=== PATIENT | female | born 1945 | race Caucasian/White ===

== ENCOUNTER 2021-11-18 17:49 | Emergency (ER) | payer MEDICARE, MEDICAID, SELFPAY ==
[2021-11-18 18:23] VITALS: BP 105/73; PULSE 99; RESP 18; TEMP 36.8; O2SAT 90
[2021-11-18] MEDS: ondansetron 2 mg/ML SDV 2 mL 4 MG IVP (21:49)
[2021-11-18 22:00] LABS: Basophils # 0.1 10^3/uL (0.0-0.1); Basophils % 0.6 %; Eosinophils # 0.2 10^3/uL (0.0-0.8); Eosinophils % 1.3 %; Hematocrit 50.1 % (37.0-47.0); Hemoglobin 14.8 g/dL (11.5-15.3); Lymphocytes # 1.7 10^3/uL (0.8-4.8); Lymphocytes % 9.8 %; Mean Corpuscular HGB Conc 29.5 g/dL (30.0-36.0); Mean Corpuscular Hemoglobin 28.7 pg (28.0-34.0); Mean Corpuscular Volume 97.3 fl (81-99); Mean Platelet Volume 9.3 fL (7.4-10.4); Monocytes # 0.6 10^3/uL (0.2-0.9); Monocytes % 3.5 %; Neutrophils # 14.55 10^3/uL (1.8-7.7); Neutrophils % 83.2 %; Nucleated Red Blood Cells % 0.2 %; Platelet Count 205 10^3/cmm (130-400); Red Blood Count 5.15 10^6/uL (4.1-5.3); White Blood Count 17.5 10^3/uL (4.0-10.0)
[2021-11-18 22:28] LABS: Alanine Aminotransferase 46 U/L (0-33); Albumin Level 3.8 g/dL (3.5-5.2); Alkaline Phosphatase 200 IU/L (35-105); Blood Urea Nitrogen 14 mg/dL (8-23); Carbon Dioxide 28 mmol/L (22-29); Chloride 97 mmol/L (98-107); Globulin 2.8 g/dL (1.3-4.6); Glucose 111 mg/dL (65-115); Lipase 17 U/L (13-60); Osmolality Calculated 285 mOsm/kg (285-295); Sodium 137 mmol/L (136-145); Total Bilirubin 0.9 mg/dL (0.15-1.2); Total Protein 6.6 g/dL (6.6-8.7)
[2021-11-18 22:33] LABS: Anion Gap 17.5 (5-19); Aspartate Amino Transferase 194 U/L (0-32); Potassium 5.5 mmol/L (3.5-5.1)
--- NOTE | 2021-11-19 00:30 | CTR_ITS ---
PROCEDURE INFORMATION: Exam: CT Abdomen And Pelvis Without Contrast Exam date and time: 11/19/2021 12:30 AM Age: 76 years old Clinical indication: Nausea and vomiting; Abdominal pain; Generalized; Prior surgery; Surgery type: Gb. Nephrectomy. Hysterectomy. ; Patient HX: C/O abd pain with n/v. Elevated wbc. ; Additional info: Abd pain, persistent n/v, elevated wbc TECHNIQUE: Imaging protocol: Computed tomography of the abdomen and pelvis without contrast. Radiation optimization: All CT scans at this facility use at least one of these dose optimization techniques: automated exposure control; mA and/or kV adjustment per patient size (includes targeted exams where dose is matched to clinical indication); or iterative reconstruction. COMPARISON: No relevant prior studies available. RADIATION DOSE METRICS: Total DLP (mGy-cm): 1627.46 FINDINGS: Lungs: Multiple diffuse bilateral pulmonary nodules measuring up to 17 mm throughout the visualized lung gutierrez concerning for metastatic disease, dedicated chest CT advised for further evaluation. Caudate lobe of the liver demonstrates a 4.5 cm low-density mass concerning for metastatic disease given lung findings, MRI or CT with intravenous contrast advised for further evaluation. Liver: Normal. No mass. Gallbladder and bile ducts: Cholecystectomy. Pancreas: Normal. No ductal dilation. Spleen: Normal. No splenomegaly. Adrenal glands: Left adrenal 17 mm low-density nodule may reflect a benign adenoma, however, metastatic disease is not excluded. Right adrenal 4.6 cm low-density mass is also seen, concerning for metastatic disease. Kidneys and ureters: Right kidney is absent. Stomach and bowel: Diverticulosis without diverticulitis. Appendix: No evidence of appendicitis. Intraperitoneal space: Unremarkable. No free air. No significant fluid collection. Vasculature: Unremarkable. No abdominal aortic aneurysm. Lymph nodes: Unremarkable. No enlarged lymph nodes. Urinary bladder: Unremarkable as visualized. Reproductive: Unremarkable as visualized. Bones/joints: L1 vertebral body superior endplate compression deformity is likely chronic. Soft tissues: Moderate umbilical hernia containing omentum without bowel. CT/CT abdomen pelvis wo con [id number] IMPRESSION: 1. Negative for acute appearing inflammatory process in the abdomen or pelvis. 2. Multiple diffuse bilateral pulmonary nodules measuring up to 17 mm throughout the visualized lung gutierrez concerning for metastatic disease, dedicated chest CT advised for further evaluation. 3. Cholecystectomy. 4. Left adrenal 17 mm low-density nodule may reflect a benign adenoma, however, metastatic disease is not excluded. Right adrenal 4.6 cm low-density mass is also seen, concerning for metastatic disease. 5. Diverticulosis without diverticulitis. 6. Moderate umbilical hernia containing omentum without bowel. 7. L1 vertebral body superior endplate compression deformity is likely chronic. 8. Right kidney is absent. COMMENTS: Consistent with the [employer]'s Incidental Findings Committee white paper (J Am Delta Radiol 2017): For any incidental adrenal lesion greater than 1 cm but less than 4 cm classified in this report as benign, likely benign, or containing fat (including classification as an adenoma or myelolipoma), no follow-up imaging is recommended per consensus recommendations based on imaging criteria. Further lab evaluation could be pursued if warranted based on clinical findings.
--- NOTE | 2021-11-19 00:32 | W.ED.NAVMDI ---
HPI - Nausea/Vomiting/Diarrhea General: Chief complaint: Nausea/Vomiting/Diarrhea Stated complaint: Throwing up and hx masses on her liver Time Seen by Provider: 11/19/21 00:22 History of Present Illness: 76-year-old female comes in today with complaints of nausea and vomiting since June. Patient reports worsening symptoms over the last 2 to 3 weeks. Patient did find out by ultrasound that she has masses to her liver. Patient is awaiting set up with her primary care provider in [place], [place]. Patient reports a history of hiatal hernia, gallbladder removal, kidney removal due to tumor, diabetes mellitus. Patient appears mildly unwell but not toxic. Associated nausea: Yes Associated symtoms: Reports nausea Review of Systems GI: Reports: nausea and vomiting Physical Exam Const: COMMON NORMALS: alert HENMT: COMMON NORMALS: normocephalic HEAD & SCALP: normocephalic Neck/C-Spine: GENERAL: No lymphadenopathy Resp: COMMON NORMALS: normal respiratory effort and clear to auscultation bilaterally AUSCULTATION: clear to auscultation bilaterally Cardio: COMMON NORMALS: regular rate and regular rhythm RATE: regular rate RHYTHM: regular rhythm GI: COMMON NORMALS: Soft to palpation and non-tender AUSCULTATION: Yes normoactive bowel sounds PALPATION: Yes Soft to palpation Extremity: COMMON NORMALS: normal to inspection and no pedal edema Neuro: SENSORIUM/ORIENTATION: Yes alert Psych: COMMON NORMALS: cooperative Skin: COMMON NORMALS: no rashes or lesions noted GENERAL SKIN EXAM: no rashes or lesions noted Course Vital Signs: Vital signs: Vital Signs Temperature 97.7 F 11/19/21 01:40 Pulse Rate 104 H 11/19/21 01:40 Respiratory Rate 20 H 11/19/21 01:40 Blood Pressure 95/70 11/19/21 01:40 Pulse Oximetry 94 11/19/21 01:40 MDM - Nausea/Vomiting/Diarrhea Medical Decision Making 76-year-old female comes in today with persistent vomiting since June. Patient has had ultrasound by her primary care that showed some abnormality to her liver which patient thinks may be causing her persistent nausea and vomiting. Patient reports over the last 3 weeks it has gotten worse. On exam patient appears mildly unwell but not toxic. Patient is morbidly obese, with a history of renal carcinoma with kidney removal. On exam lungs are clear to auscultation. Abdomen is soft and nontender to palpation. Differential diagnosis includes gastritis, bowel obstruction, gastroparesis due to diabetes mellitus, complications of hiatal hernia. Laboratory values noted a white count of 17,000, potassium was 5.5, creatinine was 1.7. Patient was given 1 L of IV fluids for concerns of dehydration. Urinalysis was unremarkable. CT of the abdomen pelvis noted no signs of infection or inflammatory disease although there was some nodule in the lung suggesting metastatic disease and recommending a CT of the chest. CT of the chest did note multiple nodules throughout lung suggesting metastatic disease. I reviewed this with Dr. Escobar recommend that we go ahead and set patient up with pulmonology for biopsy. Talk with patient regarding this and she agreed with plan. Patient was still concerned about her nausea and vomiting I recommended that we go ahead and refer her for a EGD further evaluation of her stomach lining and esophagus to rule out any gastritis or esophagitis may be contributing to her nausea and vomiting. I will start patient on some promethazine 12-1/2 mg three times a day to help with her symptoms. Patient does report that she was started on a PPI by her primary care and Zofran for her nausea. Patient reported understanding of care plan and need for follow-up or return. Case management was requested to assist with referral to pulmonology for biopsy and surgery for EGD. Lab Data : 11/18/21 21:50 11/18/21 21:50 Radiology Impressions Abdomen/Pelvis CT 11/19/21 00:30 IMPRESSION: 1. Negative for acute appearing inflammatory process in the abdomen or pelvis. 2. Multiple diffuse bilateral pulmonary nodules measuring up to 17 mm throughout the visualized lung gutierrez concerning for metastatic disease, dedicated chest CT advised for further evaluation. 3. Cholecystectomy. 4. Left adrenal 17 mm low-density nodule may reflect a benign adenoma, however, metastatic disease is not excluded. Right adrenal 4.6 cm low-density mass is also seen, concerning for metastatic disease. 5. Diverticulosis without diverticulitis. 6. Moderate umbilical hernia containing omentum without bowel. 7. L1 vertebral body superior endplate compression deformity is likely chronic. 8. Right kidney is absent. COMMENTS: Consistent with the [employer]'s Incidental Findings Committee white paper (J Am Delta Radiol 2017): For any incidental adrenal lesion greater than 1 cm but less than 4 cm classified in this report as benign, likely benign, or containing fat (including classification as an adenoma or myelolipoma), no follow-up imaging is recommended per consensus recommendations based on imaging criteria. Further lab evaluation could be pursued if warranted based on clinical findings. Chest CT 11/19/21 01:07 IMPRESSION: Numerous bilateral pulmonary nodules suspicious for metastatic disease; PET-CT scan recommended for guiding biopsy planning. Laboratory Results WBC 17.5 10^3/uL (4.0-10.0) H 11/18/21 21:50 RBC 5.15 10^6/uL (4.1-5.3) 11/18/21 21:50 Hgb 14.8 g/dL (11.5-15.3) 11/18/21 21:50 Hct 50.1 % (37.0-47.0) H 11/18/21 21:50 MCV 97.3 fl (81-99) 11/18/21 21:50 MCH 28.7 pg (28.0-34.0) 11/18/21 21:50 MCHC 29.5 g/dL (30.0-36.0) L 11/18/21 21:50 RDW 16.0 % (12.1-15.1) H 11/18/21 21:50 Plt Count 205 10^3/cmm (130-400) 11/18/21 21:50 MPV 9.3 fL (7.4-10.4) 11/18/21 21:50 Neut % (Auto) 83.2 % 11/18/21 21:50 Lymph % (Auto) 9.8 % 11/18/21 21:50 [place] % (Auto) 3.5 % 11/18/21 21:50 Eos % (Auto) 1.3 % 11/18/21 21:50 Baso % (Auto) 0.6 % 11/18/21 21:50 Neut # (Auto) 14.55 10^3/uL (1.8-7.7) H 11/18/21 21:50 Lymph # (Auto) 1.7 10^3/uL (0.8-4.8) 11/18/21 21:50 [place] # (Auto) 0.6 10^3/uL (0.2-0.9) 11/18/21 21:50 Eos # (Auto) 0.2 10^3/uL (0.0-0.8) 11/18/21 21:50 Baso # (Auto) 0.1 10^3/uL (0.0-0.1) 11/18/21 21:50 Nucleated RBC % (auto) 0.2 % 11/18/21 21:50 Nucleated RBCs # 0.0 /100WBC 11/18/21 21:50 Sodium 137 mmol/L (136-145) 11/18/21 21:50 Potassium 5.5 mmol/L (3.5-5.1) H 11/18/21 21:50 Chloride 97 mmol/L (98-107) L 11/18/21 21:50 Carbon Dioxide 28 mmol/L (22-29) 11/18/21 21:50 Anion Gap 17.5 (5-19) 11/18/21 21:50 BUN 14 mg/dL (8-23) 11/18/21 21:50 Creatinine 1.7 mg/dL (0.5-0.9) H 11/18/21 21:50 GFR Calculation Not Reportable 11/18/21 21:50 Glucose 111 mg/dL (65-115) 11/18/21 21:50 Calculated Osmolality 285 mOsm/kg (285-295) 11/18/21 21:50 Calcium 8.0 mg/dL (8.5-10.5) L 11/18/21 21:50 Total Bilirubin 0.9 mg/dL (0.15-1.2) 11/18/21 21:50 AST 194 U/L (0-32) H 11/18/21 21:50 ALT 46 U/L (0-33) H 11/18/21 21:50 Alkaline Phosphatase 200 IU/L (35-105) H 11/18/21 21:50 Total Protein 6.6 g/dL (6.6-8.7) 11/18/21 21:50 Albumin 3.8 g/dL (3.5-5.2) 11/18/21 21:50 Globulin 2.8 g/dL (1.3-4.6) 11/18/21 21:50 Lipase 17 U/L (13-60) 11/18/21 21:50 Urine Color Alisia (Yellow) 11/19/21 01:12 Urine Appearance Clear (CLEAR) 11/19/21 01:12 Urine pH 5 (5-7) 11/19/21 01:12 Ur Specific [place] 1.030 (1.005-1.030) 11/19/21 01:12 Urine Protein Trace (Negative) 11/19/21 01:12 Urine Glucose (UA) Norm (Normal) 11/19/21 01:12 Urine Ketones Negative (Negative) 11/19/21 01:12 Urine Blood 2+ (Negative) H 11/19/21 01:12 Urine Nitrate Negative (Negative) 11/19/21 01:12 Urine Bilirubin 1+ (Negative) H 11/19/21 01:12 Urine Urobilinogen 1 mg/dL (Negative) H 11/19/21 01:12 Ur Leukocyte Esterase Negative (Negative) 11/19/21 01:12 Urine RBC 5-10 /hpf (0-2) H 11/19/21 01:12 Urine WBC 0-4 /hpf (0-5) H 11/19/21 01:12 Ur Squamous Epith Cells 0-4 /hpf (0-5) H 11/19/21 01:12 Amorphous Sediment 1+ /hpf 11/19/21 01:12 Urine Bacteria 1+ /hpf (NONE) H 11/19/21 01:12 Hyaline Casts 0-4 /lpf H 11/19/21 01:12 Urine Mucus 2+ /hpf 11/19/21 01:12 Discharge Plan Discharge Patient Disposition: Home Clinical Impression: Abnormal CT scan, lung, Pulmonary nodule, Hernia, hiatal Nausea & vomiting Qualifiers: Vomiting type: unspecified Qualified Code(s): R11.2 - Nausea with vomiting, unspecified Condition: Stable Prescriptions: New promethazine 12.5 mg tablet 12.5 mg PO TID PRN (Reason: nausea and vomiting) Qty: 14 0RF Rx Instructions: 3 doses during day; last dose no later than 4 hr before bedtime Discharge Orders: Discharge ED (Routine); Ordered 11/19/21 Ordered By: Chris Esquivel Discharge Diet: Usual diet Discharge Activity: Increase activity as tolerated Patient Instructions: Hiatal Hernia (ED) Activity Restrictions/Additional Instructions: Continue with routine medications as directed. Use promethazine as needed for nausea and vomiting. Eat small frequent meals. Avoid eating 2 to 3 hours before bedtime. Drink plenty of water. Follow-up with primary care for further instruction. Case management will contact you regarding pulmonology follow-up for biopsy of the lung. manager embalmer funeral director also contact you regarding your persistent nausea and vomiting to rule out gastritis or other gastric etiology. Coding Level of Care Code ED Tug Hand for Chg Fwd Exam Comprehensive
--- NOTE | 2021-11-19 01:07 | CTR_ITS ---
PROCEDURE INFORMATION: Exam: CT Chest Without Contrast; Diagnostic Exam date and time: 11/19/2021 1:07 AM Age: 76 years old Clinical indication: Prior surgery; Patient HX: Cough. Pulm nodules seen on abd CT. No contrast given due to nephrectomy and elevated creat. ; Additional info: Cough, abnormal CT of abd TECHNIQUE: Imaging protocol: Diagnostic computed tomography of the chest without contrast. Radiation optimization: All CT scans at this facility use at least one of these dose optimization techniques: automated exposure control; mA and/or kV adjustment per patient size (includes targeted exams where dose is matched to clinical indication); or iterative reconstruction. COMPARISON: CT abdomen pelvis wo con [id number] 11/19/2021 12:43 AM RADIATION DOSE METRICS: Total DLP (mGy-cm): 836.04 FINDINGS: Lungs: Numerous bilateral pulmonary nodules are noted bilaterally; the largest is at the lateral right base and measures 1.9 cm greatest dimension. Small area of airspace disease at right lung base favored to represent infiltrate. Pleural spaces: Unremarkable. No pneumothorax. No pleural effusion. Heart: Dense coronary arterial calcifications are noted. Aorta: Aortic calcifications are noted. No findings of aneurysm or mediastinal hemorrhage. Lymph nodes: Enlarged subcarinal lymph node estimated at 2.4 cm short axis and suspicion for enlarged lymph node at right pulmonary hilum. Bones/joints: No acute fracture. Soft tissues: Unremarkable. CT/CT chest wo con [id number] IMPRESSION: Numerous bilateral pulmonary nodules suspicious for metastatic disease; PET-CT scan recommended for guiding biopsy planning.
[2021-11-19] MEDS: sodium chloride 0.9% 1,000 ML 999 ML IV (01:19)
--- NOTE | 2021-11-19 01:20 | PC.NURSE ---
I/O catheter performed per myself with candace Meredith RN at bedside. patient in no obivous distress.
[2021-11-19 01:29] LABS: Add Urine Culture? No; Add Urine Microscopic? YES; Amorphous Sediment Urine 1+ /hpf; Bacteria Urine 1+ /hpf; Bilirubin Urine 1+ (Negative); Blood Urine 2+ (Negative); Glucose Urine UA Norm (Normal); Hyaline Casts Urine 0-4 /lpf; Ketones Urine Negative (Negative); Leukocyte Esterase Urine Negative (Negative); Mucus Urine 2+ /hpf; Nitrate Urine Negative (Negative); Protein Urine Trace (Negative); Squamous Epithelial Cell Urine 0-4 /hpf (0-5); Urine Appearance Clear (CLEAR); Urine Color Amber (Yellow); Urobilinogen Urine 1 mg/dL (Negative); WBC Urine 0-4 /hpf (0-5); pH Urine 5 (5-7)
[2021-11-19 01:40] VITALS: BP 95/70; PULSE 104; RESP 20; TEMP 36.5; O2SAT 94
--- NOTE | 2021-11-19 01:41 | PC.NURSE ---
ct at bedside taking patinet . patient in no obivous distress.
[2021-11-19] MEDS: promethazine 25 mg/mL SDV 1 mL IM (02:56)
[2021-11-19] MEDS: dexamethasone 4 mg/mL INJ IVP (02:56)
[2021-11-19] MEDS: pantoprazole 40 mg SDV IVP (03:05)
[2021-11-19 03:06] VITALS: BP 128/86; PULSE 95; RESP 20; TEMP 36.6; O2SAT 94
[2021-11-19 03:48] VITALS: BP 116/86; PULSE 94; RESP 18; TEMP 36.7; O2SAT 95
--- NOTE | 2021-11-19 07:24 | DCPLANNER ---
Addendum entered by Harriett Rider 11/25/21 07:40: Patient has a follow up appointment scheduled for Wednesday, December 01, 2021 at 11:[address] Metzger at [facility] General Surgery. Clinic will call patient with appointment information. Original Note: mortuary operations manager had message to schedule a follow up appointment for patient with general surgery. mortuary operations manager emailed patients information to Zuleyma Han and Angelica at [facility] General Surgery / ENT clinic. Patients information will be printed and reviewed. Clinic will call patient with appointment information.
--- NOTE | 2021-11-19 11:44 | DCPLANNER ---
Addendum entered by Harriett Rider 12/12/21 12:56: Patient had a follow up appointment scheduled for 12.01.21 with general surgery - patient did attend appointment. Addendum entered by Harriett Rider 12/12/21 09:21: Patient had a follow up appointment scheduled with heart care - patient did not attend appointment. Original Note: grain oilseed or pasture farm manager had message to schedule a follow up appointment with pulmonology. grain oilseed or pasture farm manager called [facility], spoke with Arina, gave clinic patients information. A follow up appointment was scheduled for Wednesday, December 01, 2021 at 2:[address] Eaton. grain oilseed or pasture farm manager called patient, gave patient the appointment information.
== END 2021-11-19 03:50 | disposition home or self-care (01) ==
PROVIDERS: Emergency Provider Nurse Practitioner Family
DX: R11.2 Nausea with vomiting, unspecified (principal); R91.8 Other nonspecific abnormal finding of lung field; R91.1 Solitary pulmonary nodule; K44.9 Diaphragmatic hernia without obstruction or gangrene
CPT/HCPCS: 51701; 71250; 74176; 80053; 81001; 83690; 85025; 96361; 96372; 96374; 96375; 99283; C9113; J1100; J2405; J2550; J7030

== ENCOUNTER 2021-11-26 00:03 | Emergency (ER) | payer MEDICARE, MEDICAID, SELFPAY ==
[2021-11-26 00:10] VITALS: BP 126/82; PULSE 100; RESP 22; TEMP 36.6; O2SAT 93; BMI 49.1
--- NOTE | 2021-11-26 00:19 | XRR_ITS ---
PROCEDURE INFORMATION: Exam: XR Chest Exam date and time: 11/26/2021 12:19 AM Age: 76 years old Clinical indication: Shortness of breath; Patient HX: C/O worsening SOB. Mildly hypoxic on monitor. History of copd. ; Additional info: Chest pain TECHNIQUE: Imaging protocol: XR of the chest. Views: 1 view. COMPARISON: CT chest con [id number] 11/19/2021 1:46 AM FINDINGS: Lungs: Stable, multiple lung nodules. No acute infiltrate. Pleural spaces: Unremarkable. No pleural effusion. No pneumothorax. Heart/Mediastinum: There is mild cardiomegaly. Stable right hilar adenopathy. Bones/joints: Unremarkable. XR/XR chest 1V portable [id number] IMPRESSION: 1. Mild cardiomegaly. 2. Stable, multiple lung nodules. 3. Stable right hilar adenopathy. 4. No acute infiltrate.
[2021-11-26 03:24] LABS: Basophils # 0.1 10^3/uL (0.0-0.1); Basophils % 0.6 %; Eosinophils # 0.2 10^3/uL (0.0-0.8); Eosinophils % 1.5 %; Hemoglobin 13.3 g/dL (11.5-15.3); Lymphocytes # 1.3 10^3/uL (0.8-4.8); Lymphocytes % 10.4 %; Mean Corpuscular HGB Conc 29.6 g/dL (30.0-36.0); Mean Corpuscular Hemoglobin 28.6 pg (28.0-34.0); Mean Corpuscular Volume 96.8 fl (81-99); Mean Platelet Volume 9.1 fL (7.4-10.4); Monocytes # 0.5 10^3/uL (0.2-0.9); Monocytes % 4.3 %; Neutrophils # 10.12 10^3/uL (1.8-7.7); Neutrophils % 82.1 %; Nucleated Red Blood Cells % 0 %; Platelet Count 118 10^3/cmm (130-400); Red Blood Count 4.65 10^6/uL (4.1-5.3); Red Cell Distribution Width 16.2 % (12.1-15.1); White Blood Count 12.3 10^3/uL (4.0-10.0)
[2021-11-26 03:58] LABS: Albumin Level 3.5 g/dL (3.5-5.2); Chloride 103 mmol/L (98-107); Glucose 107 mg/dL (65-115); Sodium 136 mmol/L (136-145)
[2021-11-26 04:11] LABS: Alanine Aminotransferase 66 U/L (0-33); Alkaline Phosphatase 263 IU/L (35-105); Anion Gap 18.6 (5-19); Aspartate Amino Transferase 274 U/L (0-32); Blood Urea Nitrogen 20 mg/dL (8-23); Carbon Dioxide 21 mmol/L (22-29); Globulin 1.9 g/dL (1.3-4.6); Lipase 26 U/L (13-60); Osmolality Calculated 285 mOsm/kg (285-295); Potassium 4.6 mmol/L (3.5-5.1); Total Bilirubin 1.1 mg/dL (0.15-1.2); Total Protein 5.3 g/dL (6.6-8.7)
--- NOTE | 2021-11-26 04:15 | ED_ITS ---
HPI - Abdominal Pain General: Chief Complaint: Abdominal Pain Stated Complaint: ABD Pain O2 Level 84, SOB Time Seen by Provider: 11/26/21 04:06 Source: patient Mode of arrival: ambulatory Limitations: no limitations History of Present Illness: 76-year-old female who states she has been having nausea and vomiting since June. She states that she ran out of her Phenergan today she has had worse vomiting. She states she is scheduled for scope later this month she believes next week. She states she also had some slight shortness of breath she does wear 2 L at home here she is 94% on the 2 L denies any cough denies any fever denies any diarrhea denies any abdominal pain currently. Associated Symptoms: Reports nausea and vomiting; Denies chills, dysuria and fever(s) Review of Systems Const: Denies: fever(s), chills, body aches or change in appetite Eyes: Denies: blurry vision or eye discomfort ENMT: Denies: throat pain or dental pain Card: Denies: chest pain Resp: Reports: dyspnea GI: Reports: nausea and vomiting : Denies: dysuria Musc: Denies: neck pain or back pain Skin/Breast: Denies: rash Neuro: Denies: headache(s) Psych: Denies: depression Bk/Lymph: Denies: easy bruising All/Imm: Denies: urticaria PFS ED PFSH: Medical History (Updated 11/26/21 @ 05:07 by Lio Escobar MD) Nausea & vomiting Social History (Updated 11/26/21 @ 04:16 by Lio Escobar MD) Substance/Drug Use: never Physical Exam Const: COMMON NORMALS: no acute distress, patient oriented x3 and healthy appearing HENMT: COMMON NORMALS: normocephalic and atraumatic HEAD & SCALP: normocephalic and atraumatic Eye: COMMON NORMALS: Equal, round and reactive pupils present and EOMs intact bilaterally PUPIL: Yes Equal, round and reactive pupils present Neck/C-Spine: COMMON NORMALS: full ROM and supple Chest: COMMONS NORMALS: normal inspection of the chest and normal palpation of entire chest wall Resp: COMMON NORMALS: normal respiratory effort, No retractions, No use of accessory muscles and clear to auscultation bilaterally AUSCULTATION: clear to auscultation bilaterally Cardio: COMMON NORMALS: regular rate, regular rhythm and No murmurs present (Cardio) RATE: regular rate RHYTHM: regular rhythm GI: COMMON NORMALS: Normal to inspection, nondistended, normoactive bowel sounds present, Soft to palpation, non-tender and no masses PALPATION: Yes Soft to palpation Extremity: COMMON NORMALS: normal to inspection and full ROM Neuro: COMMON NORMALS: patient oriented x3, moves all extremities and no focal motor deficits Psych: COMMON NORMALS: mental status grossly normal, Normal thought process present and cooperative THOUGHT PROCESS: Normal thought process present Skin: COMMON NORMALS: no rashes or lesions noted and no wounds GENERAL SKIN EXAM: no rashes or lesions noted Course Vital Signs: Vital signs: Vital Signs Temperature 97.8 F 11/26/21 00:10 Pulse Rate 102 H 11/26/21 05:06 Respiratory Rate 18 11/26/21 05:05 Blood Pressure 126/82 11/26/21 00:10 Pulse Oximetry 94 11/26/21 05:05 MDM - Abdominal Pain Medical Decision Making Patient presents here with vomiting that is been chronic in nature she is well- appearing here blood work here is normal she feels better after Phenergan will prescribe her Phenergan for home she stable for discharge she is to follow-up with her scope as scheduled next week she is return if worsening. Lab Data : 11/26/21 03:19 11/26/21 03:19 Labs/Radiology: Radiology Impressions Chest X-Ray 11/26/21 00:19 IMPRESSION: 1. Mild cardiomegaly. 2. Stable, multiple lung nodules. 3. Stable right hilar adenopathy. 4. No acute infiltrate. Laboratory Results WBC 12.3 10^3/uL (4.0-10.0) H 11/26/21 03:19 RBC 4.65 10^6/uL (4.1-5.3) 11/26/21 03:19 Hgb 13.3 g/dL (11.5-15.3) 11/26/21 03:19 Hct 45.0 % (37.0-47.0) 11/26/21 03:19 MCV 96.8 fl (81-99) 11/26/21 03:19 MCH 28.6 pg (28.0-34.0) 11/26/21 03:19 MCHC 29.6 g/dL (30.0-36.0) L 11/26/21 03:19 RDW 16.2 % (12.1-15.1) H 11/26/21 03:19 Plt Count 118 10^3/cmm (130-400) L 11/26/21 03:19 MPV 9.1 fL (7.4-10.4) 11/26/21 03:19 Neut % (Auto) 82.1 % 11/26/21 03:19 Lymph % (Auto) 10.4 % 11/26/21 03:19 [place]le % (Auto) 4.3 % 11/26/21 03:19 Eos % (Auto) 1.5 % 11/26/21 03:19 Baso % (Auto) 0.6 % 11/26/21 03:19 Neut # (Auto) 10.12 10^3/uL (1.8-7.7) H 11/26/21 03:19 Lymph # (Auto) 1.3 10^3/uL (0.8-4.8) 11/26/21 03:19 [place] # (Auto) 0.5 10^3/uL (0.2-0.9) 11/26/21 03:19 Eos # (Auto) 0.2 10^3/uL (0.0-0.8) 11/26/21 03:19 Baso # (Auto) 0.1 10^3/uL (0.0-0.1) 11/26/21 03:19 Nucleated RBC % (auto) 0 % 11/26/21 03:19 Nucleated RBCs # 0.0 /100WBC 11/26/21 03:19 Sodium 136 mmol/L (136-145) 11/26/21 03:19 Potassium 4.6 mmol/L (3.5-5.1) 11/26/21 03:19 Chloride 103 mmol/L (98-107) 11/26/21 03:19 Carbon Dioxide 21 mmol/L (22-29) L 11/26/21 03:19 Anion Gap 18.6 (5-19) 11/26/21 03:19 BUN 20 mg/dL (8-23) 11/26/21 03:19 Creatinine 2.1 mg/dL (0.5-0.9) H 11/26/21 03:19 GFR Calculation Not Reportable 11/26/21 03:19 Glucose 107 mg/dL (65-115) 11/26/21 03:19 Calculated Osmolality 285 mOsm/kg (285-295) 11/26/21 03:19 Calcium 8.0 mg/dL (8.5-10.5) L 11/26/21 03:19 Total Bilirubin 1.1 mg/dL (0.15-1.2) 11/26/21 03:19 AST 274 U/L (0-32) H 11/26/21 03:19 ALT 66 U/L (0-33) H 11/26/21 03:19 Alkaline Phosphatase 263 IU/L (35-105) H 11/26/21 03:19 Total Protein 5.3 g/dL (6.6-8.7) L 11/26/21 03:19 Albumin 3.5 g/dL (3.5-5.2) 11/26/21 03:19 Globulin 1.9 g/dL (1.3-4.6) 11/26/21 03:19 Lipase 26 U/L (13-60) 11/26/21 03:19 Discharge Plan Discharge Patient Disposition: Home Clinical Impression: Nausea & vomiting Prescriptions: New promethazine 25 mg tablet 25 mg PO Q6H PRN (Reason: nausea and vomiting) Qty: 20 0RF No Action promethazine 12.5 mg tablet 12.5 mg PO TID PRN (Reason: nausea and vomiting) Qty: 14 0RF Rx Instructions: 3 doses during day; last dose no later than 4 hr before bedtime pantoprazole 40 mg tablet,delayed release (DR/EC) 40 mg PO BID 10 Days Qty: 20 0RF Discharge Orders: Discharge ED (Routine); Ordered 11/26/21 Ordered By: Lio Escobar Discharge Diet: Advance as tolerated Discharge Activity: Resume usual activity Patient Instructions: Acute Nausea and Vomiting (ED) Coding Level of Care Code ED Doorperson Or Luggage Porter for Annette Fwd Exam Comprehensive
[2021-11-26] MEDS: promethazine 25 mg/mL SDV 1 mL IM (04:26)
[2021-11-26] MEDS: sodium chloride 0.9% 1,000 ML 999 ML IV (04:55)
[2021-11-26] MEDS: ipratropium-albuterol 3 mL Neb INHALATION (05:02)
[2021-11-26 05:05] VITALS: PULSE 99; RESP 18; O2SAT 94
[2021-11-26 05:06] VITALS: PULSE 102
[2021-11-26 05:37] VITALS: BP 115/72; PULSE 71; RESP 18; O2SAT 99
[2021-11-26 05:39] VITALS: BP 115/72; PULSE 71; RESP 18; O2SAT 99
== END 2021-11-26 05:42 | disposition home or self-care (01) ==
PROVIDERS: Physician Assistant; Emergency Provider Emergency Medicine
DX: R11.2 Nausea with vomiting, unspecified (principal)
CPT/HCPCS: 71045; 80053; 83690; 85025; 94640; 96360; 96372; 99284; J2550; J7030